=== PATIENT | female | born 1975 | race Caucasian/White ===

== ENCOUNTER 2022-04-30 14:43 | Outpatient (CLI) | payer BC | END 2022-04-30 14:44 | disposition home or self-care (01) | LOC: CSHLAB 14:43 | PROVIDERS: ATTEND Surgery | DX: Z20.822 Contact with and (suspected) exposure to COVID-19 (principal); K80.20 Calculus of gallbladder without cholecystitis without obstruction | CPT/HCPCS: U0003; U0005 ==

== ENCOUNTER 2022-05-05 05:53 | Day surgery (SDC) | payer BC ==
[2022-04-29 15:23] VITALS: BMI 38.0
[2022-05-05] MEDS ORDERED: Lidocaine 1% MPF 2 ML VIAL ONE (06:44)
[2022-05-05] MEDS ORDERED: Fentanyl 250 MCG/5 ML VIAL ONE (06:45)
[2022-05-05] MEDS ORDERED: Rocuronium Bromide 10 MG/ML (10ML VIAL) ONE (06:45)
[2022-05-05] MEDS ORDERED: Ondansetron PF 4 MG/2 ML Vial ONE (06:45)
[2022-05-05] MEDS ORDERED: Ketorolac Tromethamine 30 MG/ML VIAL ONE (06:45)
[2022-05-05] MEDS ORDERED: Dexamethasone 4 mg/ml Vial ONE (06:45)
[2022-05-05] MEDS ORDERED: Lidocaine 1% PF 5 ML VIAL ONE (06:45)
[2022-05-05] MEDS ORDERED: PROPOFOL 20 ML ONE (06:45)
[2022-05-05] MEDS ORDERED: Bupivacaine 0.25% HCL 30 ML VIAL ONE (06:53)
[2022-05-05] MEDS ORDERED: EPINEPHrine 1 MG/ML AMP ONE (06:53)
[2022-05-05] MEDS ORDERED: Clindamycin/D5W 600 MG in Premix Bag 1 BAG IVPB SCH (07:30)
[2022-05-05] MEDS ORDERED: PHENYLEPHRINE-NS 100 MCG/ML 10 ML SYRINGE ONE (07:48)
[2022-05-05] MEDS ORDERED: Glycopyrrolate 0.2 MG/ML 5 ML SYRINGE ONE (08:24)
[2022-05-05] MEDS ORDERED: Fentanyl 100 MCG/2 ML VIAL ONE (09:44)
== END 2022-05-05 10:20 | disposition home or self-care (01) ==
LOC: CSHSDC 05:53
PROVIDERS: ATTEND Surgery
PROC: 0FT44ZZ Resection of Gallbladder, Percutaneous Endoscopic Approach (ICD-10-PCS; principal; 2022-05-05)
DX: K80.10 Calculus of gallbladder with chronic cholecystitis without obstruction (principal); K31.A0 Gastric intestinal metaplasia, unspecified; E03.9 Hypothyroidism, unspecified; I10 Essential (primary) hypertension; E66.9 Obesity, unspecified; Z68.38 Body mass index [BMI] 38.0-38.9, adult; Z79.84 Long term (current) use of oral hypoglycemic drugs; Z79.890 Hormone replacement therapy; Z79.899 Other long term (current) drug therapy; Z88.0 Allergy status to penicillin; Z88.1 Allergy status to other antibiotic agents; Z88.2 Allergy status to sulfonamides
CPT/HCPCS: 88304; C1713; J0171; J1100; J1885; J2405; J2704; J3010; J3490; S0020